=== PATIENT | male | born 1945 | race Caucasian/White ===

== ENCOUNTER 2017-08-01 10:46 | Day surgery (SDC) | payer MEDICARE, BC ==
[~2017-08-01 10:46] MED LIST: Lactated Ringers 1,000 ML IV SCH
--- NOTE | 2017-08-01 11:37 | PCM.PREANE ---
Preanesthetic Assessment - Anesthesia/Transfusion/Family Hx Anesthesia History: Prior Anesthesia Without Reaction Family History of Anesthesia Reaction: No Transfusion History: No Prior Transfusion(s) Intubation History: Unknown - Review of Systems General: No Symptoms Pulmonary: No Symptoms Cardiovascular: No Symptoms Gastrointestinal: Difficulty Swallowing Neurological: No Symptoms Other: Reports: None - Physical Assessment Height: 1.8 m Weight: 114.759 kg ASA Class: 3 Mental Status: Alert & Oriented x3 Airway Class: Mallampati = 3 Dentition: Reports: Normal Dentition Thyro-Mental Finger Breadths: 3 Mouth Opening Finger Breadths: 2 (small mouth) ROM/Head Extension: Limited/Partial Lungs: Clear to Auscultation, Normal Respiratory Effort Cardiovascular: Regular Rate, Regular Rhythm - Allergies Allergies/Adverse Reactions: Allergies Allergy/AdvReac Type Severity Reaction Status Date / Time cyclobenzaprine Allergy Swelling Verified 07/28/17 08:22 [From Flexeril] lisinopril Allergy Cough Verified 07/28/17 08:22 Penicillins Allergy Anaphylactic Verified 07/28/17 08:22 Shock - Blood Blood Available: No - Anesthesia Plan Pre-Op Medication Ordered: None - Acknowledgements Anesthesia Type Planned: MAC Pt an Appropriate Candidate for the Planned Anesthesia: Yes Alternatives and Risks of Anesthesia Discussed w Pt/Guardian: Yes Pt/Guardian Understands and Agrees with Anesthesia Plan: Yes PreAnesthesia Questionnaire HEENT History: Reports: Allergic Rhinitis, Other (See Below) Other HEENT History: wears glasses Cardiovascular History: Reports: Arrhythmia, High Cholesterol, Hypertension, IN (quastionable), Stents Other Cardiovascular History: hx SVT. ok post ablation in , h/o CHF before stents were placed Respiratory History: Reports: Sleep Apnea Genitourinary History: Reports: None Musculoskeletal History: Reports: Fracture Other Musculoskeletal History: hx fx leg Endocrine/Metabolic History: Reports: Obesity/BMI 30+ Dermatologic History: Reports: Other (See Below) Other Dermatologic History: hx shrapnel in rt foot and left arm - Past Surgical History Head Surgeries/Procedures: Reports: None HEENT Surgical History: Reports: Other (See Below) Other HEENT Surgeries/Procedures: hx eye surgery for FB removal-metal Cardiovascular Surgical History: Reports: Cardiac Ablation, Coronary Artery Stent ( x3 in , one redone in ) GI Surgical History: Reports: Colonoscopy, Hernia, Inguinal Neurological Surgical History: Reports: Lumbar Spine Other Neurological Surgeries/Procedures: hx back surgery Musculoskeletal Surgical History: Reports: Hip Replacement (right), Shoulder Surgery Other Musculoskeletal Surgeries/Procedures:: hx rt hip replacement, and left shoulder surgery - SUBSTANCE USE Smoking Status *Q: Former Smoker Days Per Week of Alcohol Use: 7 Number of Drinks Per Day: 2 Total Drinks Per Week: 14 Recreational Drug Use History: No - HOME MEDS Home Medications: Home Meds Aspirin [[place] Aspirin] 81 mg PO DAILY 07/19/17 [History] Calcium Polycarbophil [Fiber Laxative] 2 tab PO DAILY 07/19/17 [History] Celecoxib [CeleBREX] 100 mg PO DAILY 07/19/17 [History] Cholecalciferol (Vitamin D3) [Vitamin D3] 2 tab PO DAILY 07/19/17 [History] Furosemide [Lasix] 40 mg PO DAILY 07/19/17 [History] Losartan Potassium 0.5 tab PO DAILY 07/19/17 [History] Metoprolol Succinate/HCTZ [Metoprolol ER-Hctz 50-12.5 mg] 1 tab PO BID 07/19/17 [History] Potassium Chloride 2 tab PO DAILY 07/19/17 [History] Rosuvastatin Calcium [Crestor] 40 mg PO DAILY 07/19/17 [History] - CURRENT (IN HOUSE) MEDS Current Meds: Current Medications Lactated Ringer's (Ringers, Lactated) 1,000 mls @ 125 mls/hr IV ASDIRECTED [facility] Last Admin: 08/01/17 11:27 Dose: 125 mls/hr
[2017-08-01] MEDS ORDERED: Lidocaine 2% 5 ML SDV ONE (12:31)
[2017-08-01] MEDS ORDERED: Propofol 200 MG/20 ML SDV ONE (12:32)
[2017-08-01] MEDS ORDERED: Lactated Ringers 1,000 ML IV SCH (13:00)
--- NOTE | 2017-08-01 13:02 | PCM.OPNOTE ---
- General Post-Op/Procedure Note Date of Surgery/Procedure: 08/01/17 Operative Procedure(s): Esophagogastroduodenoscopy with biopsy Pre Op Diagnosis: Solid food dysphagia Post-Op Diagnosis: Chronic gastritis Anesthesia Technique: MAC (ASA III) Primary Surgeon: Bowen Del Rio Condition: Good Free Text/Narrative:: Dictation [id number] CPT CODE 78395
--- NOTE | 2017-08-03 09:31 | OR ---
SURGEON: Bowen Del Rio M.D. DATE OF PROCEDURE: 08/01/2017 OPERATION PERFORMED: Esophagogastroduodenoscopy with biopsy. ANESTHESIA: MAC. ASA CLASSIFICATION: III. PREOPERATIVE DIAGNOSIS: Progressive solid food dysphagia. POSTOPERATIVE DIAGNOSIS: Mild gastritis, no evidence of esophageal stricture. DESCRIPTION OF PROCEDURE: The patient was taken to the endoscopy room and positioned on the endoscopy table in the supine position. Time-out was called for appropriate identification of the patient and procedure. Monitored anesthesia care was provided. The bite block was placed between the patient's teeth. The gastroscope was inserted through the bite block and advanced into the oropharynx without difficulty. This was subsequently advanced through the esophagus and stomach into the duodenum, where examination was carried out in a retrograde fashion. The duodenum shows no acute inflammatory changes or ulcerations. The scope was withdrawn back into the stomach, which does show [id number] gastritis. Antral biopsies were obtained to look for the presence of Helicobacter pylori. The gastroscope was retroflexed to visualize the proximal stomach. No ulcerations were noted proximally. No tumors or polyps were seen. The gastroscope was then straightened and slowly withdrawn to the GE junction, which does show some [id number] inflammatory changes. Again, biopsies of the GE junction were obtained. The esophagus demonstrated good contractility. No mid or proximal lesions were identified. The vocal cords were briefly visualized as the scope was withdrawn and noted to move symmetrically. The gastroscope was then removed with the patient having tolerated the procedure well. He was taken to recovery room in stable condition. VIOLA / LUDY /[id number]
== END 2017-08-01 13:40 | disposition home or self-care (01) ==
LOC: MW.SDS 10:46
PROVIDERS: ATTEND Surgery
DX: K29.50 Unspecified chronic gastritis without bleeding (principal); J30.9 Allergic rhinitis, unspecified; M19.90 Unspecified osteoarthritis, unspecified site; I25.2 Old myocardial infarction; I50.9 Heart failure, unspecified; I11.0 Hypertensive heart disease with heart failure; E78.00 Pure hypercholesterolemia, unspecified; E66.9 Obesity, unspecified; Z68.35 Body mass index [BMI] 35.0-35.9, adult; Z88.0 Allergy status to penicillin; Z88.8 Allergy status to other drugs, medicaments and biological substances; Z79.82 Long term (current) use of aspirin; Z79.899 Other long term (current) drug therapy; Z98.890 Other specified postprocedural states; Z96.641 Presence of right artificial hip joint; Z87.891 Personal history of nicotine dependence; Z95.5 Presence of coronary angioplasty implant and graft
CPT/HCPCS: 43239; J7120; 00731; 88305; 88312; J2704